=== PATIENT | male | born 1985 | race Two or more races ===

== ENCOUNTER 2019-02-26 18:26 | Emergency (ER) | payer MEDICAID ==
[~2019-02-26] VITALS: Ht 165.1 cm; Wt 68.2 kg
[~2019-02-26 18:26] MED LIST: GABA300C PO; LORA-269 PO; OMEP20CA4 PO
[2019-02-26] MEDS ORDERED: LIDO20SO16 PO (19:34)
[2019-02-26] MEDS ORDERED: IBUP-1986 PO (19:34)
[2019-02-26] MEDS ORDERED: CLIN150C2 PO (19:34)
[2019-02-26 19:44] VITALS: BP 146/96
== END 2019-02-26 19:46 | disposition home or self-care (01) ==
LOC: ER 18:26
DX: J02.9 Acute pharyngitis, unspecified (principal); Z79.899 Other long term (current) drug therapy
CPT/HCPCS: 87081; 87880; 99283